=== PATIENT | female | born 1945 | race Caucasian/White ===

== ENCOUNTER 2019-04-04 12:58 | Emergency (ER) | payer MEDICARE ==
[~2019-04-04] VITALS: Ht 154.9 cm; Wt 85.6 kg
[2019-04-04 12:59] VITALS: Ht 154.9 cm; Wt 85.6 kg
--- NOTE | 2019-04-04 14:29 | ERD ---
ER Documentation Chief Complaint Chief Complaint c/o dizziness HPI The patient is a 73-year-old female, presenting to the ER because of lightheadedness, dizziness and right-sided headache around 6 AM this morning, symptom previously, denies syncope, near syncope, neck pain, chest pain, dyspnea, abdominal pain, vomiting, dizzy, diarrhea. She does not smoke nor drink. She recently took Zithromax 5 mg p.o. 5 days ago for her acute sinus infection but did not complete a Z-Bhavin Past medical history: History of CVA, chronic low back pain, hypertension Past surgical history: Back surgery, tonsillectomy, umbilical herniorrhaphy, br east augmentation ROS All systems reviewed and are negative except as per history of present illness. Medications Home Meds Reported Medications Calcium Carbonate/Vitamin D3 (Os-Sam 500-Vit D3 600 Caplet) 1 Each Tablet, 1 EACH PO DAILY, TAB 04/04/19 Lactobacillus Acidophilus* (Lactinex*) 1 Tab Chew, 1 TAB PO DAILY, TAB 04/04/19 Cholecalciferol* (Vitamin D3*) 1,000 Unit Tablet, 1000 UNIT PO DAILY, TAB 04/04/19 Ranitidine Hcl* (Zantac*) 150 Mg Tablet, 150 MG PO DAILY, #30 TAB 04/04/19 Doxazosin Mesylate* (Doxazosin Mesylate*) 1 Mg Tablet, 1 MG PO HS, TAB 04/04/19 Hydrochlorothiazide* (Hydrochlorothiazide*) 25 Mg Tab, 25 MG PO DAILY, #30 TAB 04/04/19 Allergies Allergies: Coded Allergies: codeine (Unverified Allergy, Unknown, 04/04/19) Physical Exam Vitals Vital Signs Date Temp Pulse Resp B/P (MAP) Pulse Ox O2 O2 Flow FiO2 Time Delivery Rate 04/04/19 98.5 72 18 122/74 99 Room Air 18:35 (90) 04/04/19 98.9 69 16 109/54 97 Room Air 17:59 (72) 04/04/19 69 18 121/68 94 Room Air 16:30 (85) 04/04/19 63 18 131/75 95 Room Air 15:30 (93) 04/04/19 98.9 65 18 129/64 96 Room Air 14:45 (85) 04/04/19 99.2 84 18 150/71 97 12:59 (97) Physical Exam Const: No acute distress. Head: Atraumatic. Eyes: Normal Conjunctiva. ENT: Normal External Ears, Nose and Mouth. Bilateral maxillary sinus tenderness Neck: Full range of motion. No meningismus. Resp: Clear to auscultation bilaterally. Cardio: Regular rate and rhythm. Abd: Soft, non distended, normal bowel sounds, non tender. Skin: No petechiae or rashes. Back: No midline or flank tenderness. Ext: No cyanosis, or edema. Neur: Awake and alert. No focal deficit Psych: Normal Mood and Affect. Result Diagram: 04/04/19 1506 04/04/19 1506 Results 24 hrs Laboratory Tests Test 04/04/19 15:06 White Blood Count 11.7 10^3/ul Red Blood Count 4.67 10^6/ul Hemoglobin 13.2 g/dl Hematocrit 41.1 % Mean Corpuscular Volume 88.0 fl Mean Corpuscular Hemoglobin 28.3 pg Mean Corpuscular Hemoglobin Concent 32.1 g/dl Red Cell Distribution Width 13.9 % Platelet Count 197 10^3/UL Mean Platelet Volume 10.8 fl Immature Granulocytes % 0.400 % Neutrophils % 76.5 % Lymphocytes % 15.0 % Monocytes % 7.0 % Eosinophils % 0.8 % Basophils % 0.3 % Nucleated Red Blood Cells % 0.0 /100WBC Immature Granulocytes # 0.050 10^3/ul Neutrophils # 8.9 10^3/ul Lymphocytes # 1.8 10^3/ul Monocytes # 0.8 10^3/ul Eosinophils # 0.1 10^3/ul Basophils # 0.0 10^3/ul Nucleated Red Blood Cells # 0.0 10^3/ul Prothrombin Time 12.4 Sec Prothrombin Time Ratio 1.0 INR International Normalized Ratio 0.91 Activated Partial Thromboplast Time 24.3 Sec Sodium Level 141 mmol/L Potassium Level 3.2 mmol/L Chloride Level 102 mmol/L Carbon Dioxide Level 30 mmol/L Anion Gap 9 Blood Urea Nitrogen 18 mg/dl Creatinine 0.84 mg/dl Est Glomerular Filtrat Rate mL/min mL/min Glucose Level 103 mg/dl Calcium Level 9.8 mg/dl Current Medications Medications Dose Sig/Joel Start Time Status Last (Trade) Ordered Route PRN Stop Time Admin Dose Reason Admin Ondansetron 4 mg ONCE STAT 04/04/19 DC 04/04/19 HCl (Zofran IV 14:42 15:24 Inj) 04/04/19 14:44 Meclizine 25 mg ONCE ONCE 04/04/19 DC 04/04/19 HCl PO 15:00 15:25 (Antivert) 04/04/19 15:01 Potassium 60 meq ONCE STAT 04/04/19 DC 04/04/19 Chloride PO 18:27 18:34 (Klor-Con 20) 04/04/19 18:28 Procedures/[place] [address] Radiology Main Line: [phone] DIAGNOSTIC IMAGING REPORT Patient: SALINA SULLIVAN : 1945 Age: 73 Sex: F MR #: [id number] DOS: 04/04/19 1442 Ordering MD: KRISTEN AVILA MD Location: E/R Room/Bed: PROCEDURE: CT Brain without contrast. CLINICAL INDICATION: Headache. TECHNIQUE: A CT of the brain without contrast was performed utilizing axial sections from the skull base through the vertex. One or more the following does reduction techniques were utilized: Automated exposure control, adjustment of the mA/ or kV according to patient's size, or use of iterative reconstruction technique. Total exam CTDIvol is 39 MGy and DLP is 634 mGy-cm. DICOM images are available. COMPARISON: None available. FINDINGS: The ventricles and sulci are mildly prominent indicative of volume loss. There is no intracranial hemorrhage, mass effect or midline shift. No abnormal intra- axial or extra-axial fluid collections are seen. The [place]/white matter differentiation is well preserved. There are mild scattered foci of hypoattenuation in the periventricular, deep, and subcortical white matter, which are nonspecific in etiology but likely reflect chronic small vessel ischemic changes. There are mild intracranial vascular calcifications consistent with atherosclerosis. The visualized paranasal sinuses are essentially clear. IMPRESSION: 1. No acute intracranial hemorrhage, transcortical infarction or mass effect. 2. Mild intracranial atherosclerosis and chronic small vessel ischemic changes. 3. Mild generalized cerebral volume loss. RPTAT: UU .Angela Donis MD, MD Date Time Electronically viewed and signed by .Angela Donis MD, on 04/04/2019 15:54 .N/ CC: KRISTEN AVILA MD [phone] EKG: Read by emergency physician Rate/Rhythm: Normal Sinus Rhythm 68 beats/min QRS, ST, T-waves: No ST elevation, no T inversion Impression: Normal EKG MEDICAL MAKING DECISION: The patient is a 73-year-old female, presenting with a cute dizziness, acute hyperkalemia, was treated with potassium chloride 60 mg p.o. for acute hypokalemia, Zofran IV for nausea and Antivert 25 mg p.o. for acute dizziness with good response, is stable outpatient follow-up The differential diagnoses considered include but are not limited to central causes such as cerebellar infarct, cerebellar hemorrhage, cerebellar tumor, acoustic neuroma, peripheral causes such as benign positional vertigo, labyrinthitis, medication, Meniere's disease. Departure Diagnosis: Primary Impression: Dizziness Additional Impression: Hypokalemia Condition: Good Comments I discussed the patient with her physician Dr. Hanley, who was made aware of the lab, the treatment, the patient condition and he recommended to discharge the patient I discussed the findings with the patient. I advised the patient to follow-up with Dr Hanley in am and return if any concern. Disclaimer: Inadvertent spelling and grammatical errors are likely due to EH R/dictation software use and do not reflect on the overall quality of patient care. Also, please note that the electronic time recorded on this note does not necessarily reflect the actual time of the patient encounter. KRISTEN AVILA MD Apr 04, 2019 14:29
[2019-04-04] MEDS ORDERED: ONDANSETRON 4 MG INJ IV STA (14:42)
[2019-04-04] MEDS ORDERED: LACTINEX PO (14:49)
[2019-04-04] MEDS ORDERED: CHOL100062 PO (14:49)
[2019-04-04] MEDS ORDERED: CALC1TAB30 PO (14:49)
[2019-04-04] MEDS ORDERED: HYDR25TA6 PO (14:49)
[2019-04-04] MEDS ORDERED: RANI150T35 PO (14:49)
[2019-04-04] MEDS ORDERED: DOXA1TAB PO (14:49)
[2019-04-04] MEDS ORDERED: MECLIZINE 12.5 MG TAB PO ONE (15:00)
[2019-04-04] MEDS ORDERED: POTASSIUM CHLORIDE (SR) 20 MEQ TAB PO STA (18:27)
[2019-04-04 18:35] VITALS: BP 122/74; PULSE 72; RESP 18
== END 2019-04-04 18:47 | disposition home or self-care (01) ==
LOC: E/R 12:58
DX: E87.6 Hypokalemia (principal); I10 Essential (primary) hypertension; R40.2142 Coma scale, eyes open, spontaneous, at arrival to emergency department; R40.2362 Coma scale, best motor response, obeys commands, at arrival to emergency department; R40.2252 Coma scale, best verbal response, oriented, at arrival to emergency department; Z86.73 Personal history of transient ischemic attack (TIA), and cerebral infarction without residual deficits
CPT/HCPCS: 70450; 80048; 85025; 85610; 85730; 93005; J2405; 96374